=== PATIENT | female | born 1970 | race Asian ===

== ENCOUNTER 2018-09-24 08:56 | Emergency (ER) | payer SELFPAY ==
[2018-09-24 09:06] VITALS: BP 147/90; TEMP 97.2
[2018-09-24] MEDS ORDERED: MEDROL 4MG DOSPA4 MG PO (09:40)
[2018-09-24] MEDS ORDERED: SYNALAR CR0.115GM TP (09:40)
[2018-09-24 10:42] VITALS: PULSE 80
== END 2018-09-24 10:42 | disposition home or self-care (01) ==
LOC: COL.ER 08:56
DX: L25.9 Unspecified contact dermatitis, unspecified cause (principal)
CPT/HCPCS: J1100

== ENCOUNTER 2018-10-25 14:46 | Emergency (ER) | payer SELFPAY ==
[~2018-10-25] VITALS: Ht 152.4 cm; Wt 50.0 kg
[~2018-10-25 14:46] MED LIST: MEDROL 4MG DOSPA4 MG PO; SYNALAR CR0.115GM TP
[2018-10-25 14:52] VITALS: BP 140/84; TEMP 98.7
[2018-10-25] MEDS ORDERED: NORCO 325 MG-7.1 TAB PO (17:08)
[2018-10-25 18:08] VITALS: PULSE 89
== END 2018-10-25 18:11 | disposition home or self-care (01) ==
LOC: COL.ER 14:46
DX: S82.002A Unspecified fracture of left patella, initial encounter for closed fracture (principal); W00.0XXA Fall on same level due to ice and snow, initial encounter; Y92.009 Unspecified place in unspecified non-institutional (private) residence as the place of occurrence of the external cause
CPT/HCPCS: J1885; L1846